=== PATIENT | female | born 1990 | race Caucasian/White ===

== ENCOUNTER → 2018-10-31 19:00 | Observation (INO) ==
--- NOTE | 2018-10-31 17:59 | OB/GYN Progress Note ---
Date of Encounter: 11/01/18 Time of Encounter: 17:57 - Assessment and Plan (1) 29 weeks gestation of Current Visit: Yes Status: Acute (2) Decreased movement affecting management of mother, antepartum Current Visit: Yes Status: Acute Pt reports feeling movement since arriving to triage. FHT reassuring for GA. Discharge home with precautions. Qualifiers: Fetus number: single or unspecified fetus Qualified Code(s): O36.8190 - Decreased movements, unspecified trimester, not applicable or unspecified Subjective - Subjective Interval history: 27 year-old presenting at 29 weeks gestation with c/o decreased movement. She denies leaking, bleeding, or any other complaints. She gets care at [facility]. Antepartum ROS: no loss of fluid, no vaginal bleeding, no movement normal, no contractions Objective - Exam FHR: category 1 Auscultation: bilateral: normal Abdomen: Present: soft, gravid
[2018-10-31 18:29] LABS: Bilirubin,Urine Negative (Negative); Blood,Urine Negative (Negative); Clarity,Urine Turbid (Clear); Color,Urine Yellow (Yellow); Glucose,Urine (UA) Normal (Normal); Ketones,Urine Negative (Negative); Leukocyte Esterase,Urine Trace (Negative); Nitrite,Urine Negative (Negative); Protein,Urine Negative (Neg-Trace); Specific Gravity,Urine 1.015 (1.010-1.025); Urobilinogen,Urine Normal (Normal)
[2018-10-31 18:33] LABS: Bacteria,Urine None Seen per hpf (None-Few); Hyaline Casts,Urine None Seen per lpf (None-Few); RBC,Urine 0-3 per hpf (0-3); Squamous Epithelial Cell,Urine Many per lpf (None-Few)
[2018-10-31 18:43] LABS: Amphetamine Screen,Urine Negative ng/mL (Cutoff=1000); Barbiturate Screen,Urine Negative ng/mL (Cutoff=200); Benzodiazepines Screen,Urine Negative ng/mL (Cutoff=200); Cannabinoid Screen,Urine Negative ng/mL (Cutoff = 50); Cocaine Screen,Urine Negative ng/mL (Cutoff= 300); Opiate Screen,Urine Negative ng/mL (Cutoff=300); Phencyclidine Screen,Urine Negative ng/mL (Cutoff=25)
[2018-10-31 18:50] LABS: Amorphous Sediment,Urine Moderate (Few)
== END | disposition home or self-care (01) ==
LOC: 1NENULAB
PROVIDERS: ADMIT Registered Nurse; ATTEND Registered Nurse